=== PATIENT | male | born 1995 | race American Indian/Alaskan Native ===

== ENCOUNTER 2020-08-23 10:45 | Emergency (ER) | payer SELFPAY ==
[2020-08-23 11:08] VITALS: BP 144/87
--- NOTE | 2020-08-23 11:25 | Emergency Department Report ---
Chief Complaint: Sore Throat Stated Complaint: THROAT PAIN/WEAKNESS/DIABETES - HPI History of Present Illness: 24 y/o male comes in for sore throat times day number 2. Reports that in is concern for covid and is requesting a test. Took tylenol yesterday. No fevers. no cough, no HOOPER no SOB. No PMH. - Exam Vital Signs: Vital Signs 08/23/20 11:08 Temperature 98.6 F Pulse Rate 87 Respiratory 20 Rate Blood Pressure 144/87 [Right] O2 Sat by Pulse 98 Oximetry Physical Exam: Axo time 3 NAD non toxic HEENT: Throat erythmatous no exudate Non labor breathing ambulating without diff MSE screening note: Focused history and physical exam performed. Due to findings the following was ordered: 24 y/o male comes in for sore throat times day number 2. Reports that in is concern for covid and is requesting a test. Took tylenol yesterday. No fevers. no cough, no HOOPER no SOB. No PMH. ED Disposition for MSE Disposition: MED SCREENING EXAM-LEFT Is pt being admited?: No Does the pt Need Aspirin: No Condition: Stable Additional Instructions: Take Ibuprofen for pain. Get Covid testing. Increase fluids. Follow up with a Primary Care Provider. Referrals: [facility] [Provider Group] - 3-5 Days
== END 2020-08-23 12:10 | disposition left against medical advice (07) ==
LOC: ED 10:45
DX: E11.9 Type 2 diabetes mellitus without complications (principal); Z53.21 Procedure and treatment not carried out due to patient leaving prior to being seen by health care provider